=== PATIENT | female | born 1995 | race Two or more races ===

== ENCOUNTER 2020-07-27 17:49 | Emergency (ER) | payer MEDICAID ==
[~2020-07-27] VITALS: Ht 160 cm; Wt 59.0 kg
--- NOTE | 2020-07-27 18:21 | NUR ---
ED Nurse Note:pt stated she needed med refill of gabapetin. pt appears to have involuntary movements and difficulty speaking due to continuous movement.
[2020-07-27 18:23] VITALS: BP 134/70
--- NOTE | 2020-07-27 18:49 | Emergency Room Report ---
History of Present Illness General Chief Complaint: Medication Refill Source: Patient Present Illness Allergies: Coded Allergies: No Known Allergies (Unverified , 07/27/20) COVID-19 Screening Contact w/high risk pt: No Experienced COVID-19 symptoms?: No COVID-19 Testing performed TRAFFIC SUPERVISOR: No Patient History Last Menstrual Period: 07/08 Now: No Nursing Documentation-[facility] Past Medical History: No History, Except For Hx Cardiac Problems: No - ARTHRITIS Physical Exam Vital Signs Date Time Temp Pulse Resp B/P (MAP) Pulse Ox O2 Delivery O2 Flow Rate FiO2 07/27/20 18:06 98.1 104 18 134/70 (91) 99 Room Air Medical Decision Making Diagnostic Impression: Primary Impression: Methamphetamine abuse Last Vital Signs Date Time Temp Pulse Resp B/P (MAP) Pulse Ox O2 Delivery O2 Flow Rate FiO2 07/27/20 18:23 98.1 18 134/70 99 Room Air 07/27/20 18:06 104 Janet Keller DO Jul 27, 2020 18:49
--- NOTE | 2020-07-27 18:59 | NUR ---
ED Nurse Note:pt admitted to having used methampetamine earlier. she is more anxious and movements have increased. she asked the dr to give her something and said pleas several times.
[2020-07-27] MEDS ORDERED: LORazepam 1mg tab ORAL ONE (19:00)
--- NOTE | 2020-07-27 19:20 | NUR ---
ED Nurse Note: rcvd pt from primary RN. pt is restless and unable to sit still. pt admits to using earlier in the day. pt states she needs something to call down. md states she will order geodone. will continue to monitor.
[2020-07-27] MEDS ORDERED: Ziprasidone 20mg cap ORAL ONE (19:30)
--- NOTE | 2020-07-27 20:24 | NUR ---
ED Nurse Note: pt washing herself in her room, gave her geodone. pt states she just wants to take a nap. asked for juice. offered a sandwich as well. pt eating a resting comfortably on stretcher. vs wnl. breathing without complications. denies any pain. will continue to monitor.
--- NOTE | 2020-07-27 21:02 | NUR ---
ED Nurse Note:went to check vs on pt. pt refused. md notified.
--- NOTE | 2020-07-27 23:01 | NUR ---
ED Nurse Note: pt sleeping on stretcher. easily awoken by name. a&ox3, speech still garbled, no signs of distress, pt denies an pain at this time. will continue to monitor.
--- NOTE | 2020-07-28 00:39 | NUR ---
ED Nurse Note: pt sleeping on stretcher and arousable by name. pt refusing vitals again. will continue to monitor. MD states when pt awakes, she can be dispo.
--- NOTE | 2020-07-28 02:30 | NUR ---
ED Nurse Note: pt sleeping comfortably on stretcher. arousable to her name. asks her if shes ready to go home, she agrees then falls back asleep. MD agrees to let her sleep a little longer. pt showing no signs of pain or distress. vs wnl. breathing without complications. pt does continue to mumble. will continue to monitor
[2020-07-28 02:31] VITALS: BP 131/77
--- NOTE | 2020-07-28 05:17 | NUR ---
ED Nurse Note: pt still sleeping on stretcher. arousable by name. pt verbalizes she feels fine and drifts back to sleep. breathing withut complications. will let her continue to rest while monitoring
--- NOTE | 2020-07-28 05:40 | NUR ---
ER DISCHARGE NOTE: Patient is cleared to be discharged per ER MD, pt is aox4, on room air, with stable vital signs. pt was given dc instructions, pt was able to verbalize understanding, pt id band removed without complications. pt is able to ambulate with limp. i asked pt if she was ok and she stated her foot was numb as she looked like she had drop foot. pt denied injury, that it was just numb. i told the pt she could wait until her foot woke up and she said shed sit in the waiting room until the feeling came back. pt took all belongings.
[2020-07-28 05:43] VITALS: BP 131/77
== END 2020-07-28 05:40 | disposition home or self-care (01) ==
LOC: EDBD 17:49 → EMR 18:30
DX: F15.10 Other stimulant abuse, uncomplicated (principal)
CPT/HCPCS: 99282